=== PATIENT | male | born 1975 | race Caucasian/White ===

== ENCOUNTER 2024-02-14 08:17 | Inpatient (IN) | payer OTHER ==
[2024-02-14 08:45] VITALS: BMI 29.3
[2024-02-14] MEDS ORDERED: guaiFENesin 600 MG TABLET.ER (FP) PO PRN (09:38)
[2024-02-14] MEDS ORDERED: ACETAMINOPHEN 325 MG TABLET (FP) PO PRN (09:38)
[2024-02-14] MEDS ORDERED: IBUPROFEN 600 MG TABLET (FP) PO PRN (09:38)
[2024-02-14] MEDS ORDERED: POLYETHYLENE GLYCOL (HEALTHYLAX) 3350 17 GM PACKET PO PRN (09:38)
[2024-02-14] MEDS ORDERED: BISMUTH SUBSALICYLATE 524 MG/30 ML PO PRN (09:38)
[2024-02-14] MEDS ORDERED: DICYCLOMINE HCL 10 MG CAPSULE PO PRN (09:38)
[2024-02-14] MEDS ORDERED: LOPERAMIDE HCL 2 MG CAPSULE PO PRN (09:38)
[2024-02-14] MEDS ORDERED: NICOTINE POLACRILEX 2 MG LOZENGE BC PRN (09:38)
[2024-02-14] MEDS ORDERED: BENZOCAINE/MENTHOL (CHLORASEPTIC ) LOZENGE MM PRN (09:38)
[2024-02-14] MEDS ORDERED: MAGNESIUM HYDROX 2400MG/30ML ORAL SUSPENSION 30 ML CUP PO PRN (09:38)
[2024-02-14] MEDS ORDERED: NICOTINE POLACRILEX 2 MG GUM BUC PRN (09:38)
[2024-02-14] MEDS ORDERED: BENZONATATE 200 MG CAPSULE PO PRN (09:38)
[2024-02-14] MEDS ORDERED: ONDANSETRON *ODT* 4 MG TABLET SL PRN (09:38)
[2024-02-14] MEDS ORDERED: PRENATAL VITAMINS W/ FOLIC ACID TABLET (FP) PO ONE (09:44)
[2024-02-14] MEDS: PRENATAL VITAMINS W/ FOLIC ACID TABLET (FP) PO SCH (09:47)
[2024-02-14] MEDS: NICOTINE 7 MG/24 HOURS TOPICAL PATCH TD SCH (09:47)
[2024-02-14] MEDS: IBUPROFEN 400 MG TABLET (FP) PO PRN (15:36)
[2024-02-14] MEDS: THIAMINE HCL 100 MG TABLET (FP) PO SCH (22:32)
[2024-02-14] MEDS: hydrOXYzine PAMOATE 25 MG CAPSULE (FP) PO PRN (22:32)
[2024-02-14] MEDS: METHOCARBAMOL 500 MG TABLET PO PRN (22:32)
[2024-02-14] MEDS: MELATONIN 5 MG TABLETS PO SCH (22:32)
[2024-02-15] MEDS ORDERED: chlordiazePOXIDE HCL 25 MG CAPSULE PO PRN (09:34)
[2024-02-15] MEDS: chlordiazePOXIDE HCL 25 MG CAPSULE PO SCH (10:00)
[2024-02-15 11:56] LABS: HEMATOCRIT 43.6 % (35.4-49); HEMOGLOBIN 14.4 GM/dL (11.7-16.9); MCH 32.8 pg (25.7-33.7); MCHC 33.1 g/dl (32.0-35.9); MEAN CELL VOLUME 99.2 fl (80-96); MEAN PLT VOLUME 8.9 fl (7.5-11.1); PLATELET COUNT 204 10^3/uL (134-434); RBC 4.39 M/mm3 (4.00-5.60); RDW 13.6 % (11.9-15.9); WHITE BLOOD COUNT 7.4 K/mm3 (4.0-10.0)
[2024-02-15 11:58] LABS: POTASSIUM 3.8 mmol/L (3.5-5.1)
[2024-02-15 12:01] LABS: ALBUMIN 3.9 g/dl (3.4-5.0); BLOOD UREA NITROGEN 12.3 mg/dL (7-18); CALCIUM 9.3 mg/dL (8.5-10.1)
[2024-02-15 12:04] LABS: CREATININE 0.8 mg/dL (0.55-1.3)
[2024-02-15 12:05] LABS: BILIRUBIN,TOTAL 1.2 mg/dL (0.2-1)
[2024-02-15 12:07] LABS: TOT PROT 6.7 g/dl (6.4-8.2)
[2024-02-17] MEDS: chlordiazePOXIDE HCL 25 MG CAPSULE PO SCH (05:23)
[2024-02-18] MEDS ORDERED: chlordiazePOXIDE HCL 10 MG CAPSULE PO PRN
[2024-02-18] MEDS: MAG HYDROX/AL HYDROX/SIMETH 30 ML UNIT-DOSE CUP PO PRN (02:00)
[2024-02-18] MEDS: chlordiazePOXIDE HCL 10 MG CAPSULE PO SCH (05:14)
[2024-02-19] MEDS: chlordiazePOXIDE HCL 10 MG CAPSULE PO SCH (05:20)
[2024-02-19 09:35] VITALS: BP 118/83; PULSE 80; RESP 20; TEMP 97.8
[2024-02-20] MEDS ORDERED: chlordiazePOXIDE HCL 10 MG CAPSULE PO ONE (05:00)
== END 2024-02-19 09:42 | disposition home or self-care (01) | DRG 897 ==
LOC: YASAS 08:17 → Y6N 09:16
PROVIDERS: ADMIT Allergy & Immunology; ATTEND Psychiatry & Neurology Pain Medicine
PROC: HZ2ZZZZ Detoxification Services for Substance Abuse Treatment (ICD-10-PCS; principal; 2024-02-14)
DX: F10.230 Alcohol dependence with withdrawal, uncomplicated (principal); F17.210 Nicotine dependence, cigarettes, uncomplicated
CPT/HCPCS: 36415; 80053; 80305; 80307; 85027; 86780; 93005; 93010